=== PATIENT | male | born 2000 | race Caucasian/White ===

== ENCOUNTER 2022-07-30 18:44 | Emergency (ER) | payer BC, SELFPAY ==
[2022-07-30 18:48] VITALS: BP 150/78; PULSE 79; RESP 20; TEMP 36.8; O2SAT 96
--- NOTE | 2022-07-30 19:00 | DI.RAD_ITS ---
Exam(s) XR WRIST LT COMPLETE EXAM: XR WRIST LT COMPLETE CLINICAL HISTORY: Injury, Swelling. TECHNIQUE: 2D digital imaging was performed. COMPARISON: No exams were available for comparison FINDINGS: 3 views There is fracture of the distal radius. No significant angulation although there is a fracture fragm ent noted dorsally, as seen on the lateral view. There is also fracture the ulnar styloid which is not significantly displaced. Scaphoid unremarkable . Scapholunate distance normal. IMPRESSION: Mildly impacted fracture of the distal radius and ulnar styloid. No significant dislocation nor angu lation evident. DATA REPOSITORY: RADIATION DOSE DELIVERED:
--- NOTE | 2022-07-30 19:30 | DI.RAD_ITS ---
Exam(s) XR FOREARM LT EXAM: XR FOREARM LT CLINICAL HISTORY: Pain. TECHNIQUE: 2D digital imaging was performed. COMPARISON: No exams were available for comparison FINDINGS: There fractures of distal radius and ulnar styloid. No fracture seen more proximally in the forearm bones. IMPRESSION: Fractures of distal radius and ulnar styloid. See separate wrist image report. DATA REPOSITORY: RADIATION DOSE DELIVERED:
--- NOTE | 2022-07-30 19:31 | W.ED.GENAD ---
Discharge Plan Disposition Patient Disposition: Home Condition: Stable Discharge Details Clinical Impression: Closed fracture of left distal radius and ulna Primary Care Provider: Unknown,Unknown ED Provider: Tiff Sepulveda Home Meds and New Rx's Prescriptions: No Action No Known Home Meds Discharge Instructions Instructions: Wrist Fracture in Adults (ED) Additional Instructions: X-rays show a distal radius and ulnar fracture. Please wear the splint is much as possible except for bathing until your follow-up appointment with orthopedics. Neuro placed on care management list for Ortho follow-up they should call you for an appointment but you may call them to make an appointment as well. Rest, ice, compression, elevation while sitting or lying down. I do recommend that you stay away from snowboarding or high risk activities until cleared by orthopedics. Please take Tylenol or Ibuprofen with food every 4-6 hours as needed for pain and swelling. Return to the ER for any problems with blood circulation, severe pain or any concerns. Stand Alone Forms: School Release Referrals: Semaj Melgar MD [ [facility] STAFF PHYSICIAN] - 1 week Medical Decision Making 22-year-old male presents to the ER with a chief complaint of left wrist pain and swelling after a snowboarding injury approximately 48 hours ago. He reports that he has been icing it and elevating it taking Tylenol and ibuprofen with somewhat relief. Radial pulses intact distal cap refill less than 2 seconds. He reports pain with pronation and supination. He denies any neck pain back pain or any other injuries or associated symptoms. x-ray shows a impacted distal radius and ulnar styloid fracture, nondisplaced Forearm x-ray ordered due to patient request I did explain to him that I do feel it is referred pain from his radius and ulnar fracture however due to the tenderness additional imaging ordered. Discussed home care and follow-up care he verbalizes understanding. Patient placed on the Ortho follow-up list. This text was generated using [employer] system, please disregard any oddities of phrase or misspellings. Imaging Data Radiologic Study: Imaging: X-Ray Radiologist's impression: FINDINGS: Bones/joints: Impacted fracture of the distal radius. Ulnar styloid fracture. No dislocation or significant angulation Soft tissues: Swelling of the volar aspect of the wrist IMPRESSION: Impacted distal radius fracture and ulnar styloid fracture. No dislocation Thank you for allowing us to participate in the care of your patient. Dictated and Authenticated by: Celestino Bashir MD [facility] General Mode of arrival: ambulatory. Date/Time Provider Initiated Documentation: 07/30/22 19:03. Limitations to Documentation: no limitations. Information obtained by: patient, RN notes reviewed and old records reviewed. HPI Narrative: 22-year-old male presents to the ER with a chief complaint of left wrist pain and swelling after a snowboarding injury approximately 48 hours ago. He reports that he has been icing it and elevating it taking Tylenol and ibuprofen with somewhat relief. Radial pulses intact distal cap refill less than 2 seconds. He reports pain with pronation and supination. He denies any neck pain back pain or any other injuries or associated symptoms. Related Data Home Medications Medication Instructions Recorded Confirmed Unknown [No Known Home Meds] 07/30/22 07/30/22 Allergies Allergy/AdvReac Type Severity Reaction Status Date / Time metoclopramide [From Reglan] AdvReac Unknown Unverified 07/30/22 18:53 General Stated Complaint: Orthopedic COCO: 4 Review of Systems All systems reviewed & are unremarkable except as noted in HPI and below Musculoskeletal Musculoskeletal: Reports as per HPI, Reports arthralgias and Reports joint swelling PFSH All Active Problems (Updated 07/30/22 @ 20:57 by Tiff Sepulveda NP) Closed fracture of left distal radius and ulna (Acute) Social History Smoking/Tobacco Use Status: Never Smoking risk assessment performed?: Yes Alcohol Intake: current Alcohol Intake frequency: holidays/special occasions only Drug use: Rarely Substance use type: marijuana Do you feel safe at home: Yes Do you feel safe in your relationship?: Yes Exam Extrem Right upper extremity: normal to inspection Left upper extremity: normal capillary refill, edema, elbow/forearm Details: normal to inspection and tenderness (Mid forearm) Location: of the mid-shaft forearm and wrist Details: abnormal to inspection, tenderness, swelling, abnormal ROM, normal vascular exam and radial pulse present Elbow/forearm/wrist images: 1. Swelling, tenderness Course Vital Signs Vital signs: Vital Signs Temperature 36.8 C 07/30/22 18:48 Pulse 79 07/30/22 18:48 Respiratory Rate 20 07/30/22 18:48 Blood Pressure 150/78 H 07/30/22 18:48 Pulse Oximetry 96 07/30/22 18:48 Temperature 36.8 C 07/30/22 18:48 Temperature Source Temporal Artery Scan 07/30/22 18:48 Pulse 79 07/30/22 18:48 Respiratory Rate 20 07/30/22 18:48 Respiratory Effort 07/30/22 18:56 Blood Pressure 150/78 H 07/30/22 18:48 Blood Pressure Position Sitting 07/30/22 18:48 Pulse Oximetry 96 07/30/22 18:48 Oxygen Delivery Method Room Air 07/30/22 18:48 Oxygen Flow Rate 0 07/30/22 18:48 Pain Level 1 07/30/22 18:48
--- NOTE | 2022-07-30 19:34 | DI.VRAD_ITS ---
PROCEDURE INFORMATION: Exam: XR Left Wrist Exam date and time: 07/30/2022 7:14 PM Age: 22 years old Clinical indication: Other: Injury, swelling TECHNIQUE: Imaging protocol: Radiologic exam of the Left wrist. Views: 3 or more views. COMPARISON: No relevant prior studies available. FINDINGS: Bones/joints: Impacted fracture of the distal radius. Ulnar styloid fracture. No dislocation or significant angulation Soft tissues: Swelling of the volar aspect of the wrist IMPRESSION: Impacted distal radius fracture and ulnar styloid fracture. No dislocation Dictated and Authenticated by: Celestino Bashir MD. Ordering:ARIANA Matthew MD
--- NOTE | 2022-07-30 20:13 | DI.VRAD_ITS ---
PROCEDURE INFORMATION: Exam: XR Left Forearm Exam date and time: 07/30/2022 7:55 PM Age: 22 years old Clinical indication: Lower or forearm; Left; Patient HX: L forearm pain TECHNIQUE: Imaging protocol: Radiologic exam of the Left forearm. Views: 2 views. COMPARISON: CR XR WRIST LT COMPLETE 07/30/2022 7:14 PM FINDINGS: Bones/joints: Distal radius and ulnar fractures are grossly stable in appearance. Proximal forearm and visualized elbow are intact Soft tissues: Mild swelling over the distal forearm/ wrist IMPRESSION: Distal radius and ulnar fractures are grossly stable. No proximal fracture Dictated and Authenticated by: Celestino Bashir MD. Ordering:ARIANA Matthew MD
[2022-07-30 21:06] VITALS: BP 139/66; PULSE 84; RESP 16; TEMP 35.9; O2SAT 96
== END 2022-07-30 21:09 | disposition home or self-care (01) ==
PROVIDERS: Emergency Provider Registered Nurse Emergency
DX: S52.592A Other fractures of lower end of left radius, initial encounter for closed fracture (principal); S52.615A Nondisplaced fracture of left ulna styloid process, initial encounter for closed fracture; V00.311A Fall from snowboard, initial encounter
CPT/HCPCS: 29125; 99284; 73090; 73110

== ENCOUNTER 2022-08-03 09:47 | Outpatient (CLI) | payer BC, SELFPAY ==
--- NOTE | 2022-08-03 08:32 | DI.RAD_ITS ---
Exam(s) XR WRIST LT COMPLETE EXAM: XR WRIST LT COMPLETE CLINICAL HISTORY: LEFT DISTAL RADIUS AND ULNA. TECHNIQUE: 2D digital imaging was performed of the left wrist. Three images were obtained. PA, obl ique and lateral views were obtained. COMPARISON: CR,XR XR WRIST LT COMPLETE from 07/30/2022 FINDINGS: BONES: There has been no significant change in alignment of the distal radial or ulnar fractures. Th ere is persistent mild displacement of the distal radial fracture. There also appears to be a minima lly displaced scaphoid fracture through the waist. No bony destructive lesion is seen. JOINTS: The carpal bones are normally aligned. SOFT TISSUE: Normal. IMPRESSION: 1. Stable distal radial and ulnar fractures. 2. Findings of a mildly displaced scaphoid waist fracture. DATA REPOSITORY: RADIATION DOSE DELIVERED:
== END 2022-08-03 09:48 | disposition home or self-care (01) ==
LOC: DIORS 09:47
PROVIDERS: Visit Provider Student in an Organized Health Care Education/Training Program
DX: S52.592A Other fractures of lower end of left radius, initial encounter for closed fracture (principal); S52.615A Nondisplaced fracture of left ulna styloid process, initial encounter for closed fracture; V00.311A Fall from snowboard, initial encounter; S62.024A Nondisplaced fracture of middle third of navicular [scaphoid] bone of right wrist, initial encounter for closed fracture
CPT/HCPCS: 73110